=== PATIENT | female | born 1960 | race Caucasian/White ===

== ENCOUNTER 2019-07-14 16:58 | Observation (INO) ==
[2019-07-14] MEDS ORDERED: SODIUM CHLORIDE 0.9% 1000ML 1,000 ML IV SCH (17:30)
[2019-07-14 17:46] LABS: Basophils # (auto) 0.02 K/uL (0-0.2); Basophils % (auto) 0.1 %; Eosinophils # (auto) 0.01 K/uL (0-0.5); Eosinophils % (auto) 0.1 %; Hematocrit (blood only) 42.1 % (37-47); Hemoglobin 14.3 g/dL (12.0-16.0); Immature Granulocytes # (auto) 0.03 K/uL (0.00-0.02); Immature Granulocytes % (auto) 0.2 %; Lymphocytes # (auto) 1.39 K/uL (1.2-3.4); Lymphocytes % (auto) 7.9 %; Mean Corpuscular Hemoglobin 29.7 pg (25-34); Mean Corpuscular Volume 87.3 fL (80-100); Monocytes # (auto) 0.67 K/uL (0.11-0.59); Monocytes % (auto) 3.8 %; Neutrophils # (auto) 15.54 K/uL (1.4-6.5); Neutrophils % (auto) 87.9 %; Platelet Count 236 K/uL (130-400); RDW Standard Deviation 41.8 fL (36.4-46.3); Red Blood Count 4.82 M/uL (4.2-5.4); White Blood Count 17.66 K/uL (4.8-10.8)
[2019-07-14 18:09] LABS: Alanine Aminotransferase 26 U/L (12-78); Albumin Level 4.4 gm/dl (3.4-5.0); BUN Creatinine Ratio 31.4 (10-20); Blood Urea Nitrogen 21 mg/dl (7-18); Calcium 9.5 mg/dl (8.5-10.1); Carbon Dioxide 27 mmol/L (21-32); Chloride 100 mmol/L (98-107); Est GFR (African American) 109.4; Est GFR (Non-African American) 94.4; Glucose 95 mg/dl (70-99); Sodium 135 mmol/L (136-145)
[2019-07-14 18:13] LABS: Appearance Urine Clear (Clear); Bacteria Urine Automated Negative (Negative); Bilirubin Urine Negative (Negative); Blood Urine Trace (Negative); Color Urine Yellow; Epithelial Cell Urine Auto >30 /lpf (0-5); Glucose Urine UA Negative (Negative); Ketones Urine 2+ (Negative); Leukocyte Esterase Urine Negative (Negative); Nitrite Urine Negative (Negative); Protein Urine Trace (Negative); Specific Gravity Urine 1.022 (1.000-1.030); Urobilinogen Urine Negative (Negative)
[2019-07-14 18:17] LABS: Albumin Globulin Ratio 1.3 (0.9-2); Alkaline Phosphatase 42 U/L (45-117); Bilirubin,Total 0.8 mg/dl (0.2-1); Globulin 3.4 gm/dl (2.5-4.0); Thyroid Stimulating Hormone 0.506 uIu/ml (0.300-4.500); Total Protein 7.8 gm/dl (6.4-8.2)
--- NOTE | 2019-07-14 18:21 | XRay Report ---
XR chest 1V portable CLINICAL HISTORY: weakness COMPARISON STUDY: No previous studies for comparison. FINDINGS: Lung volumes are normal. Lungs are clear. There is no pneumothorax or pleural effusion. Mil d cardiomegaly is noted. Mediastinal contours are normal. There is no evidence for pulmonary edema. I ncidental note is made of mild S-shaped scoliosis of the thoracolumbar spine. Several old left rib fr actures are noted. IMPRESSION: No acute cardiopulmonary findings. ACT 112: Negative or not required by law. Electronically signed by: Isrrael Perez M.D. 07/14/2019 6:20 PM
[2019-07-14 18:52] LABS: Potassium 3.9 mmol/L (3.5-5.1)
[2019-07-14 18:57] LABS: Magnesium 1.8 mg/dl (1.8-2.4)
[2019-07-14] MEDS ORDERED: GADOBUTROL 65ML VIAL IV PRN (19:25)
--- NOTE | 2019-07-14 19:54 | Magnetic Resonance Report ---
MRI OF THE BRAIN WITHOUT AND WITH IV CONTRAST CLINICAL HISTORY: new right leg weakness, hx of MS, chronic LLE weak COMPARISON STUDY: No previous studies for comparison. TECHNIQUE: Utilizing a 1.5 Shilpi magnet and dedicated coil, multiplanar, multiecho imaging of the br ain was performed pre and postcontrast administration. IV administration of 4.5 mL of Gadavist contr ast was uneventful. FINDINGS: There are no foci of restricted diffusion to suggest acute infarct. No acute intracranial h emorrhage, midline shift or mass effect is present. Ventricular dilatation is likely due to marked ce ntral atrophy. The corpus callosum is thinned. Numerous white matter T2 hyperintense foci, many of wh ich are periventricular in distribution, suggesting demyelinating disease. There is no enhancement to suggest active demyelination. There is no intracranial mass or pathologic enhancement. Flow-voids in the major intracranial vessels are present. Prosthetic left globe is noted. Calvarial signal is norm al. IMPRESSION: 1. No acute intracranial findings. No evidence for acute infarct. 2. Ventricular dilatation due to marked central atrophy with thinning of the corpus callosum. 3. Numerous white matter T2 hyperintense foci, many of which are periventricular in distribution. Thi s is consistent with the history of multiple sclerosis. No evidence for active demyelination. ACT 112: Negative or not required by law. Electronically signed by: Isrrael Perez M.D. 07/14/2019 7:52 PM
[2019-07-14] MEDS ORDERED: cefTRIAXone SODIUM 1,000 MG/50 ML BAG IV STA (20:53)
[2019-07-14] MEDS ORDERED: POLYETHYLENE (MIRALAX) 17 GM PACK PO PRN (23:07)
[2019-07-14] MEDS ORDERED: ACETAMINOPHEN 325 MG TAB PO PRN (23:07)
[2019-07-14] MEDS ORDERED: CBD OIL PO SCH (23:07)
[2019-07-14] MEDS ORDERED: LORazepam 0.5 MG TAB PO PRN (23:07)
[2019-07-14] MEDS ORDERED: ONDANSETRON INJ 2 MG/ML 2 ML VIAL IV PRN (23:07)
[2019-07-14] MEDS ORDERED: PIPERACILL/TAZOBAC CONSULT ACTIVE PRN (23:07)
[2019-07-14] MEDS: SODIUM CHLORIDE 0.9% 1000ML 1,000 ML IV SCH (23:46)
--- NOTE | 2019-07-14 23:54 | Emergency Department Note ---
Entered by Reina Caballero acting as a scribe for ED Provider Note CHIEF COMPLAINT: Leg pain and weakness HISTORY OF PRESENT ILLNESS: The patient is a 59 year old female with past medical history of multiple sclerosis who presents to the Emergency Room with complaints of constant worsening right leg weakness and pain that started this morning. The patient reports she had double vision when they discovered she had MS. She notes she has right sided vision problems, which the patient states is chronic. The patient states she feels weak overall and has a cough. Pt denies LOC, headache, fevers, chills, diaphoresis, visual changes, neck pain, chest pain, breathing difficulties, nausea, vomiting, abdominal pain, back pain, melena, hematochezia, urinary symptoms, numbness, lymphadenopathy, rash, or other complaints. REVIEW OF SYSTEMS: See HPI for pertinent positives and negatives. A total of ten systems were reviewed and were otherwise negative. PMHx/PSHx: Multiple sclerosis SOCIAL HISTORY: Patient lives at home. PHYSICAL EXAM: GENERAL: Awake, alert, well-appearing, in no distress HENT: Normocephalic, atraumatic. Oropharynx unremarkable. EYES: PERRL. Normal conjunctiva. Sclera non-icteric. NECK: Inspection normal. Non-tender. Supple. No nuchal rigidity. FROM. No masses. RESPIRATORY: Clear to auscultation. No wheezes. No rales. Normal respiratory effort. CARDIAC: Normal rate. Normal rhythm. No murmurs. No rubs. Extremities warm and well perfused. Pulses equal. No JVD. GI: Soft, non-distended. No tenderness to palpation. No rebound or guarding. No masses. RECTAL: Deferred. MUSCULOSKELETAL: Atraumatic. Chest examination reveals no tenderness. The back is symmetrical on inspection without obvious abnormality. There is no CVA tenderness to palpation. No joint edema. LOWER EXTREMITIES: Calves are equal size bilaterally and non-tender. No edema. No discoloration. Strength is 2/5 on the left side which patient states is chronic. Right leg drift but strength is about 3.5/5. NEURO: Normal sensorium. No sensory or motor deficits noted. No upper extremity drift. Normal rapid alternating movements. SKIN: No rash or jaundice noted. EMERGENCY DEPARTMENT COURSE: 1711: The patient was evaluated in room C6, and a complete history and physical examination were performed. 2042: I checked on the patient 2049: I discussed the patients case with Dr. Glover, Neurological Surgery. He said to admit the patient and do an infectious workup. He felt like it should be covered with antibiotics because of her immune system. 2057: I discussed the patient's case with Dr. Roy, [facility] Hospitalist. The patient will be evaluated for further management. MEDICAL DECISION MAKING: Nursing notes reviewed and agree them. Additional history obtained from patient's . The patient's history was concerning for weakness. Differential diagnosis: Etiologies such as MS flare, CVA, TIA, metabolic, infection, hypo/hyperglycemia, electrolyte abnormalities, cardiac sources, intracerebral event, toxicologic, neurologic, as well as others were entertained. Physical examination: As above. ER treatment provided: IV Lock Normal saline hydration IV Rocephin On reassessment the patient felt better. Diagnostics interpretation by me: ECG: Normal The labs revealed a significant leukocytosis on CBC of 17,000. No prior white blood cell counts present in the EMR. Chemistry panel unremarkable. Urinalysis negative. Imaging studies: Chest x-ray negative for acute process. MRI of the head was performed with and without contrast. Old findings of MS present. No obvious active lesions. No ischemia. Consultation: A consultation was placed with the neurologist on-call, Dr. Glover. He recommended antibiotic coverage, infectious work-up, and admission to the hosp ital given the findings. Patient was in agreement. A consultation was placed with the hospitalist. The case was discussed and diagnostics were reviewed. The patient was evaluated in the ER for further treatment. IMPRESSION: Weakness Leukocytosis Multiple Sclerosis PLAN: Admit The scribe's documentation has been prepared under my direction and personally reviewed by me in its entirety. I confirm that the note above accurately reflects all work, treatment, procedures, and medical decision making performed by me. Impression & Plan Weakness, Multiple sclerosis, Leukocytosis Past Med/Surg History Medical History Multiple sclerosis Family History Other No known problems Social History Feels Safe at Home: Yes Results & Data Vital Signs Vital Signs - 24 hr 07/14/19 17:01 07/14/19 17:25 07/14/19 20:00 Temperature 37.3 C Temperature Source Oral Pulse Rate 90 Pulse Rate [Left Finger] 90 Respiratory Rate 18 Respiratory Effort / Characteristics Non-Labored Respiratory Depth Normal Respiratory Pattern Regular Blood Pressure 156/79 H Blood Pressure [Right Arm] 173/88 H Blood Pressure Mean 104 Blood Pressure Mean [Right Arm] 116 Blood Pressure Position Sitting Pulse Oximetry 98 98 98 Oxygen Delivery Method Room Air Room Air Room Air Sepsis Recent Fever Within 48 Hours No Sepsis Action Taken by Nursing No Action Required Home Medications Current Medication List: was personally reviewed by me Laboratory Data Attestation: I reviewed the patient's lab results. Result diagrams: 07/14/19 17:36 07/14/19 18:31 Lab Results 07/14/19 07/14/19 07/14/19 Range/Units 17:36 17:36 18:00 WBC 17.66 H (4.8-10.8) K/uL RBC 4.82 (4.2-5.4) M/uL Hgb 14.3 (12.0-16.0) g/dL Hct 42.1 (37-47) % MCV 87.3 (80-100) fL MCH 29.7 (25-34) pg MCHC 34.0 (32-36) g/dL RDW Std Deviation 41.8 (36.4-46.3) fL RDW Coeff of Odalys 13.0 (11.5-14.5) % Plt Count 236 (130-400) K/uL MPV 10.0 (7.4-10.4) fL Immature Gran % (Auto) 0.2 % Neut % (Auto) 87.9 % Lymph % (Auto) 7.9 % [place] % (Auto) 3.8 % Eos % (Auto) 0.1 % Baso % (Auto) 0.1 % Immature Gran # (Auto) 0.03 H (0.00-0.02) K/uL Neut # (Auto) 15.54 H (1.4-6.5) K/uL Lymph # (Auto) 1.39 (1.2-3.4) K/uL [place] # (Auto) 0.67 H (0.11-0.59) K/uL Eos # (Auto) 0.01 (0-0.5) K/uL Baso # (Auto) 0.02 (0-0.2) K/uL Sodium 135 L (136-145) mmol/L Potassium (3.5-5.1) mmol/L Chloride 100 (98-107) mmol/L Carbon Dioxide 27 (21-32) mmol/L Anion Gap 8.0 (3-11) BUN 21 H (7-18) mg/dl Creatinine 0.68 (0.6-1.2) mg/dl Est Cr Clr Drug Dosing Not Reportable Est GFR ( Amer) 109.4 Est GFR (Non-Af Amer) 94.4 BUN/Creatinine Ratio 31.4 H (10-20) Glucose 95 (70-99) mg/dl Calcium 9.5 (8.5-10.1) mg/dl Magnesium (1.8-2.4) mg/dl Total Bilirubin 0.8 (0.2-1) mg/dl AST (15-37) U/L ALT 26 (12-78) U/L Alkaline Phosphatase 42 L (45-117) U/L Total Protein 7.8 (6.4-8.2) gm/dl Albumin 4.4 (3.4-5.0) gm/dl Globulin 3.4 (2.5-4.0) gm/dl Albumin/Globulin Ratio 1.3 (0.9-2) TSH 0.506 (0.300-4.500) uIu/ml Urine Color Yellow Urine Appearance Clear (Clear) Urine pH 6.0 (4.5-7.5) Ur Specific [place] 1.022 (1.000-1.030) Urine Protein Trace H (Negative) Urine Glucose (UA) Negative (Negative) Urine Ketones 2+ H (Negative) Urine Blood Trace H (Negative) Urine Nitrite Negative (Negative) Urine Bilirubin Negative (Negative) Urine Urobilinogen Negative (Negative) Ur Leukocyte Esterase Negative (Negative) Urine WBC (Auto) 1-5 (0-5) /hpf Urine RBC (Auto) 5-10 H (0-4) /hpf U Hyaline Cast (Auto) 1-5 (0-5) /lpf U Epithel Cells (Auto) >30 H (0-5) /lpf Urine Bacteria (Auto) Negative (Negative) Ur Renal Epithelial Cell Not Reportable 07/14/19 Range/Units 18:31 WBC (4.8-10.8) K/uL RBC (4.2-5.4) M/uL Hgb (12.0-16.0) g/dL Hct (37-47) % MCV (80-100) fL MCH (25-34) pg MCHC (32-36) g/dL RDW Std Deviation (36.4-46.3) fL RDW Coeff of Odalys (11.5-14.5) % Plt Count (130-400) K/uL MPV (7.4-10.4) fL Immature Gran % (Auto) % Neut % (Auto) % Lymph % (Auto) % [place] % (Auto) % Eos % (Auto) % Baso % (Auto) % Immature Gran # (Auto) (0.00-0.02) K/uL Neut # (Auto) (1.4-6.5) K/uL Lymph # (Auto) (1.2-3.4) K/uL [place] # (Auto) (0.11-0.59) K/uL Eos # (Auto) (0-0.5) K/uL Baso # (Auto) (0-0.2) K/uL Sodium (136-145) mmol/L Potassium 3.9 (3.5-5.1) mmol/L Chloride (98-107) mmol/L Carbon Dioxide (21-32) mmol/L Anion Gap (3-11) BUN (7-18) mg/dl Creatinine (0.6-1.2) mg/dl Est Cr Clr Drug Dosing Est GFR ( Amer) Est GFR (Non-Af Amer) BUN/Creatinine Ratio (10-20) Glucose (70-99) mg/dl Calcium (8.5-10.1) mg/dl Magnesium 1.8 (1.8-2.4) mg/dl Total Bilirubin (0.2-1) mg/dl AST 9 L (15-37) U/L ALT (12-78) U/L Alkaline Phosphatase (45-117) U/L Total Protein (6.4-8.2) gm/dl Albumin (3.4-5.0) gm/dl Globulin (2.5-4.0) gm/dl Albumin/Globulin Ratio (0.9-2) TSH (0.300-4.500) uIu/ml Urine Color Urine Appearance (Clear) Urine pH (4.5-7.5) Ur Specific [place] (1.000-1.030) Urine Protein (Negative) Urine Glucose (UA) (Negative) Urine Ketones (Negative) Urine Blood (Negative) Urine Nitrite (Negative) Urine Bilirubin (Negative) Urine Urobilinogen (Negative) Ur Leukocyte Esterase (Negative) Urine WBC (Auto) (0-5) /hpf Urine RBC (Auto) (0-4) /hpf U Hyaline Cast (Auto) (0-5) /lpf U Epithel Cells (Auto) (0-5) /lpf Urine Bacteria (Auto) (Negative) Ur Renal Epithelial Cell Administered Medications Sodium Chloride (Nss 1000ml) 1,000 mls @ 80 mls/hr IV .[id number] PABLO Stop: 08/13/19 23:06 Last Admin: 07/14/19 23:46 Dose: 80 mls/hr Documented by: [id number] Lorazepam (Ativan) 0.5 mg PO HS PRN PRN Reason: Sleep Stop: 08/13/19 23:06 Last Admin: 07/14/19 23:46 Dose: 0.5 mg Documented by: [id number] Miscellaneous (Order Awaiting Action) 1 ea N/A QS [facility] Stop: 08/14/19 00:00 Last Admin: 07/14/19 23:47 Dose: Not Given Documented by: [id number] Miscellaneous (Order Awaiting Action) 1 ea N/A QS [facility] Stop: 08/14/19 00:00 Last Admin: 07/14/19 23:48 Dose: Not Given Documented by: [id number] Discontinued Medications Gadobutrol (Gadavist 65ml) 4.5 ml IV ONCE PRN PRN Reason: Interaction Checking Stop: 07/18/19 19:24 Last Admin: 07/14/19 19:25 Dose: 4.5 ml Documented by: [id number] Sodium Chloride (Nss 1000ml) 1,000 mls @ 125 mls/hr IV .Q8H PABLO Stop: 07/15/19 01:29 Last Infusion: 07/14/19 23:48 Dose: 0 mls/hr Documented by: [id number] Admin: 07/14/19 18:28 Dose: 125 mls/hr Documented by: [id number] Ceftriaxone Sodium (Rocephin) 1,000 mg in 50 mls @ 100 mls/hr IV NOW STA Stop: 07/14/19 21:22 Last Infusion: 07/14/19 21:53 Dose: 0 mls/hr Documented by: [id number] Admin: 07/14/19 21:16 Dose: 100 mls/hr Documented by: [id number] Imaging Data Radiologist's Impression: Radiology results as stated below per my review and the radiologist's interpretation: XR chest 1V portable CLINICAL HISTORY: weakness COMPARISON STUDY: No previous studies for comparison. FINDINGS: Lung volumes are normal. Lungs are clear. There is no pneumothorax or pleural effusion. Mild cardiomegaly is noted. Mediastinal contours are normal. There is no evidence for pulmonary edema. Incidental note is made of mild S- shaped scoliosis of the thoracolumbar spine. Several old left rib fractures are noted. IMPRESSION: No acute cardiopulmonary findings. ACT 112: Negative or not required by law. Electronically signed by: Isrrael Perez M.D. 07/14/2019 6:20 PM MRI OF THE BRAIN WITHOUT AND WITH IV CONTRAST CLINICAL HISTORY: new right leg weakness, hx of MS, chronic LLE weak COMPARISON STUDY: No previous studies for comparison. TECHNIQUE: Utilizing a 1.5 Shilpi magnet and dedicated coil, multiplanar, multiecho imaging of the brain was performed pre and postcontrast administrat ion. IV administration of 4.5 mL of Gadavist contrast was uneventful. FINDINGS: There are no foci of restricted diffusion to suggest acute infarct. No acute intracranial hemorrhage, midline shift or mass effect is present. Ventricular dilatation is likely due to marked central atrophy. The corpus callosum is thinned. Numerous white matter T2 hyperintense foci, many of which are periventricular in distribution, suggesting demyelinating disease. There is no enhancement to suggest active demyelination. There is no intracranial mass or pathologic enhancement. Flow-voids in the major intracranial vessels are present. Prosthetic left globe is noted. Calvarial signal is normal. IMPRESSION: 1. No acute intracranial findings. No evidence for acute infarct. 2. Ventricular dilatation due to marked central atrophy with thinning of the corpus callosum. 3. Numerous white matter T2 hyperintense foci, many of which are periventricular in distribution. This is consistent with the history of multiple sclerosis. No evidence for active demyelination. ACT 112: Negative or not required by law. Electronically signed by: Isrrael Perez M.D. 07/14/2019 7:52 PM Blood Pressure Blood Pressure Findings: Elevated blood pressure Blood Pressure Disposition: further management by hospitalist Discharge Plan Visit Data *Final* Discharge Date/Time: 07/14/19 22:33 Chief Complaint: Leg Injury/Pain Stated Complaint: UNABLE TO USE RIGHT LEG - MS ED Provider: Mark Santos Discharge Problem: Weakness, Multiple sclerosis, Leukocytosis Patient Disposition: Admitted As Inpatient Discharge Instructions Interventions: ED Discharge Assessment Last Done: 07/14/19 22:33 Discharge Problem: Leukocytosis Qualifiers: Leukocytosis type: unspecified Qualified Code(s): D72.829 - Elevated white blood cell count, unspecified The scribe's documentation has been prepared under my direction and personally reviewed by me in its entirety. I confirm that the note above accurately reflects all work, treatment, procedures, and medical decision making performed by me.
[2019-07-15] MEDS ORDERED: PIPERACILLIN/TAZOBACTAM 3.375 GM in DEXTROSE 5% 100 ML IV SCH
--- NOTE | 2019-07-15 00:33 | History and Physical Report ---
DATE OF ADMISSION: 07/14/2019 CHIEF COMPLAINT: Right leg weakness. HISTORY OF PRESENT ILLNESS: This is a 59-year-old female with past medical history significant for multiple sclerosis, depression, anxiety, hypertension. The patient has history of progressive MS likely of primary progressive type with left greater than right hemiparesis. She is on IV Solu-Medrol monthly and Tecfidera orally and she also started taking CBD oil to help with her myalgias and fatigue. Lives with her , walks with a walker. 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 The patient states generally her left leg is weak, but today she noticed her right leg is also getting weak and has difficulty to ambulate. Denies any pain. Has some cough at home, but there is no cough now. Denies any fever, chills. No shortness of breath, no chest pain, no nausea, no vomiting, no abdominal pain. She also has some constipation, No blood in the stools or black stools. No burning micturition, no hematuria. No rash seen. She has some headaches because she did not eat because of the test done in the ER today. Denies any blurred vision. No earache, no runny nose, no sore throat, no difficulty swallowing. Currently, resting comfortable and hemodynamically stable. MRI of the head was done in the ER, which shows no acute findings, ventricular dilatation due to marked central atrophy with thinning of the corpus callosum, lesions consistent for history of multiple sclerosis but no evidence of acute active demyelination. Chest x-ray is unremarkable. UA was unremarkable, but there was leukocytosis of 17,000. ER physician discussed with the neurologist salesperson [employer] and was advised to workup for sepsis and antibiotics and they will evaluate in the morning, but no steroids tonight. ALLERGIES: SULFA ANTIBIOTICS, SANKET INHIBITORS. PAST MEDICAL HISTORY: As mentioned above. PAST SURGICAL HISTORY: No past surgical history on file. MEDICATIONS: The patient is on amlodipine 5 mg p.o. daily, bethanechol chloride 10 mg p.o. t.i.d., calcium citrate 2 tablets p.o. daily, CBD oil 0.5 drops p.o. b.i.d., Celexa 20 mg p.o. at bedtime, Prolia 60 mg subcutaneous q. 6 months, Tecfidera 240 mg p.o. b.i.d., vitamin D2 1250 mg p.o. twice monthly, irbesartan 300 mg p.o. daily, lorazepam 0.5 mg p.o. at bedtime p.r.n., methylprednisolone IV q. 4 weeks, metoprolol succinate 100 mg p.o. daily, Centrum Silver Women 1 tablet p.o. daily. FAMILY HISTORY: No family history on file. SOCIAL HISTORY: Never smoked. No alcohol, no drug use. . REVIEW OF SYMPTOMS: As per HPI. Rest of review of symptoms negative. PHYSICAL EXAMINATION: GENERAL: The patient is thin and frail, not in acute distress. VITAL SIGNS: Temperature 37.3, pulse 90, respiratory rate 18, blood pressure ____, oxygen 98% on room air. HEENT: Left eye is blind and closed. Right eye; reactive to light. No icterus. No pallor. Head atraumatic. NECK: No JVD, no neck masses, no carotid bruits. CARDIOVASCULAR: S1, S2 heard. Regular rate and rhythm. No murmur, no gallop. RESPIRATORY SYSTEM: Normal AP diameter. No accessory muscle use. No wheezing, no crackles. ABDOMEN: Soft, bowel sounds present, nontender. No distention. CENTRAL NERVOUS SYSTEM: Alert, awake and oriented. Power 3/5 in left upper extremities, 5/5 in right upper extremity and 3/5 in right lower extremity. EXTREMITIES: No edema, no erythema seen. LABORATORY DATA: WBC 17.6, hemoglobin 14.3, hematocrit 42.1, platelets 236. Sodium 135, potassium 3.9, chloride 100, bicarb 27, BUN 21, creatinine 0.68, serum glucose 95, calcium 9.5, magnesium 1.8. Total bilirubin 0.8, AST 99, ALT 26, alkaline phosphatase 42. TSH 0.5. Urinalysis; trace protein, +2 ketones. IMAGING: Chest x-ray: No acute cardiopulmonary findings seen. Brain MRI: No acute intracranial findings, no evidence of acute infarct, ventricular dilatation due to marked central atrophy with thinning of the corpus callosum. Numerous white matter, T2 hyperintense foci many of which are periventricular in distribution. This is consistent with a history of multiple sclerosis. No evidence for active demyelination. EKG: Normal sinus rhythm with rate of 87, possible left atrial enlargement and Q-waves in inferior leads. ASSESSMENT AND PLAN: This is a 59-year-old with history of multiple sclerosis, comes with right lower extremity weakness. 1. Right lower extremity weakness, history of multiple sclerosis, generalized weakness left greater than right, ambulatory dysfunction. Presents with Right lower extremity weakness. MRI scan, no acute demyelination. ER physician notified Neurology on-call who advised of infection workup for now.. The patient has leukocytosis, but no other signs of infection. Chest x-ray and urinalysis negative. Rocephin given in ER. We will continue with IV Zosyn. Follow the blood cultures. Gentle IV fluids. Follow the response. Consult Neurology for further evaluation in a.m. 2. History of multiple sclerosis. Continue home medication of Tecfidera. She also gets IV methylprednisolone every 4 weeks. 3. Hypertension. Continue irbesartan and metoprolol succinate. Follow the blood pressure. 4. Depression and anxiety. Continue citalopram and Ativan. 5. DVT prophylaxis. SCDs for now. DISPOSITION: Closely monitor on the medical floor. Level 1 full code. MTDD
[2019-07-15] MEDS: PIPERACILLIN/TAZOBACTAM 3.375 GM in DEXTROSE 5% 100 ML IV SCH ×2 (05:21→13:53)
[2019-07-15 05:38] LABS: Basophils # (auto) 0.01 K/uL (0-0.2); Basophils % (auto) 0.1 %; Hematocrit (blood only) 40.9 % (37-47); Hemoglobin 13.3 g/dL (12.0-16.0); Immature Granulocytes # (auto) 0.03 K/uL (0.00-0.02); Immature Granulocytes % (auto) 0.2 %; Lymphocytes # (auto) 1.03 K/uL (1.2-3.4); Lymphocytes % (auto) 7.5 %; Mean Corpuscular Hemoglobin 28.9 pg (25-34); Mean Corpuscular Hgb Conc 32.5 g/dL (32-36); Mean Corpuscular Volume 88.7 fL (80-100); Mean Platelet Volume 10.1 fL (7.4-10.4); Monocytes # (auto) 1.46 K/uL (0.11-0.59); Monocytes % (auto) 10.7 %; Neutrophils # (auto) 11.15 K/uL (1.4-6.5); Neutrophils % (auto) 81.5 %; Platelet Count 216 K/uL (130-400); RDW Coefficient of Variation 13.1 % (11.5-14.5); Red Blood Count 4.61 M/uL (4.2-5.4); White Blood Count 13.68 K/uL (4.8-10.8)
[2019-07-15 06:15] LABS: BUN Creatinine Ratio 21.5 (10-20); Calcium 8.6 mg/dl (8.5-10.1); Creatinine Clr Calc Pharmacy 64.2 ml/min; Est GFR (African American) 113.4; Est GFR (Non-African American) 97.8; Magnesium 1.9 mg/dl (1.8-2.4); Potassium 3.7 mmol/L (3.5-5.1)
--- NOTE | 2019-07-15 07:12 | Hospitalist Progress Note ---
Date of Service July 15, 2019 Assessment & Plan (1) Weakness: (2) Leukocytosis: (3) Multiple sclerosis: ASSESSMENT AND PLAN: This is a 59-year-old with history of multiple sclerosis, comes with left lower extremity weakness. 1. Left lower extremity weakness, history of multiple sclerosis, generalized weakness left greater than right, ambulatory dysfunction. MRI scan, no acute demyelination. ER physician notified Neurology on-call who advised of infection workup currently. The patient has leukocytosis, but no other signs of infection. Chest x-ray and urinalysis negative. Empirically started on Rocephin. We will continue with Zosyn. Follow the blood cultures. Neurology for further evaluation today 2. Multiple Sclerosis. Continue home medication of Tacfidera. She also to get IV methylprednisolone every 4 weeks. Today she is due. 3. Hypertension. Continue Irbesartan and Metoprolol Succinate. Blood pressure up 4. Depression and anxiety. Continue citalopram and Ativan. Labs checked Obs DC later today ROS-No Headache, No Visual Changes, No Nausea, No Vomiting, No Fever, No Chills, No Neck Pain or Stiffness, No Chest Pain, No Palpitations, No SOB, No OG, No Cough, No Sputum, No Wheezing, No Abdominal Pain, No Diarrhea, No Hematemesis, No Hemoptysis, No Unexpected Weight Loss, No Flank pain, No Melena, No Hematochezia, No Frequency, No Urgency, No Burning, No Hematuria, No Rashes, No Diaphoresis. Appetite is Normal, +Weakness Physical Exam Gen-AAO x 3, NAD, Afebrile, Cachectic Head-NCAT, Absent L eye, R Eye c PERRLA, R Eye EOMI, Anicteric Sclera, No Posterior Pharyngeal Erythema Neck-Supple, No JVD, No Thyromegaly, No Masses, No LAD, No Bruits Lungs-Clear to Auscultation Bilaterally, No Rales, No Rhonchi, No Wheezing, No Crepitus Chest-No S4, +S1, +S2, No S3, No Murmurs, No Rubs, No Gallops, No Ectopy Abdomen-Soft, Bowel Sounds Present, Non Tender, Non Distended, No Hepatomegaly, No Splenomegaly, No Palpable Masses, No Rebound, No Rigidity, No Guarding Musculoskeletal-Full Range of Motion Bilaterally, No CVAT Extremities-No Cyanosis, No Clubbing, No Edema Nuero-Cranial Nerves II-XII grossly intact, Motor WNL, DTRs WNL, Strength WNL, N on Focal Psych-Normal Mood Results & Data ([facility]) Vital Signs (Past 12 Hours) Vital Signs Temp Pulse Resp BP Pulse Ox 07/14/19 23:00 37.1 C 91 H 20 153/83 H 96 07/14/19 22:33 96 07/14/19 22:25 86 165/78 H 96 07/14/19 20:00 90 173/88 H 98 (1) Leukocytosis Leukocytosis type: unspecified Qualified Code(s): D72.829 - Elevated white blood cell count, unspecified
[2019-07-15] MEDS ORDERED: methylPREDNISolone 1,000 MG in SYRINGE 0 ML IV ONE (08:12)
[2019-07-15] MEDS ORDERED: methylPREDNISolone 250 MG in SYRINGE 0 ML IV ONE (08:12)
[2019-07-15] MEDS ORDERED: SODIUM CHLORIDE 0.9% IV SCH (08:45)
[2019-07-15] MEDS ORDERED: METHYLPREDNISOLONE IV SCH (08:45)
[2019-07-15] MEDS ORDERED: IRBESARTAN 150 MG TAB PO SCH (09:00)
[2019-07-15] MEDS ORDERED: METOPROLOL SUCC 50MG EXT REL TAB PO SCH (09:00)
[2019-07-15] MEDS ORDERED: AMLODIPINE BESYLATE 5 MG TAB PO SCH (09:00)
[2019-07-15] MEDS ORDERED: CEROVITE ADV FORMULA TAB PO SCH (09:00)
--- NOTE | 2019-07-15 09:30 | Electrocardiogram Report ---
Test Reason : Blood Pressure : / mmHG Vent. Rate : 087 BPM Atrial Rate : 087 BPM P-R Int : 150 ms QRS Dur : 076 ms QT Int : 368 ms P-R-T Axes : 066 002 057 degrees QTc Int : 442 ms Normal sinus rhythm Possible Left atrial enlargement Inferior infarct , age undetermined Abnormal ECG No previous ECGs available Confirmed by Tan Nino ([id number]) on 07/15/2019 9:30:34 AM Referred By: REFERRED SELF Confirmed By:Tan Nino
[2019-07-15] MEDS: SODIUM CHLORIDE 0.9% 1000ML 1,000 ML IV SCH (11:22)
--- NOTE | 2019-07-15 13:56 | Neurology Consultation ---
Date of Consultation July 15, 2019 Assessment & Plan (1) Multiple sclerosis: 1. MRI - no new lesions, no stroke 2. CXR- no active disease 3. WBC - elevated with no source of infection 4. methylprednisolone 1 g given this am 5. IV antibiotic given Zosyn and one dose of Rocephin 6. continue Tecfidera 240 mg BID for now 7. may refer to MS specialist as outpatient -Dr Mahmood 8. PT/OT for any discharge needs- continue ambulation with walker and mofit brace for drop foot 9. MRI c spine ordered for possible lesion vs staging of disease 10. ok to discharge once MRI c spine is completed and medically stable (2) Leukocytosis: as above (3) Weakness: as above Supervising Physician Co-Signing Physician Notes I have seen and discussed above patient with Dr Mark Glover, neurology I know Kathi from multiple outpatient visits over the past 5 years. She has secondary progressive multiple sclerosis with severe baseline gait disturbance left more than right hemiparesis, and over the years has been on multiple disease modifying treatments including interferons, Copaxone, and now combination of oral Tecfidera and monthly IV Solu-Medrol which seems to be holding her at least at her current level of function which is marginal and is walker dependent gait and requiring a number of assistive devices and assistance for some of her activities of daily living. In this setting she had a recent upper respiratory tract infection without fever for which she took some [id number] decongestants and then after 2 doses developed sudden worsening of her right lower extremity weakness which was critical as this is the only extremity that is the major source of her gait and became generally weak as well to the point that she needed assistance to sit up when she came to the emergency room.. She was afebrile and laboratory studies etc. were normal with the exception of a white count of 17,000 with a left shift I did discuss the case with the emergency room physician recommended that she be admitted broad-spectrum antibiotics given, cultures reviewed and that she get her monthly IV Solu-Medrol dose today which was due anyway On this combination she is now back to her baseline she is able to ambulate with a walker her white count has fallen a bit and cultures thus far are negative as is the chest x-ray and is no obvious source of infection and she has no abdominal complaints has had no change in bowel or bladder function no nausea no vomiting so the index of suspicion of a diverticulitis or cholecystitis/cholangitis is low and the internal medicine group feels should she could be discharged MRI of her brain is unchanged shows no active lesions in an impressive amount of old demyelinating foci including some "black holes" on T1 imaging We have not imaged her cervical spine for at least 5 years and I am going to get this done while she is in the hospital to serve as a new baseline and to see if she might of had some flareup of disease in the cervical area although even if new plaque were present I do not think I would change the treatment other than perhaps considering a course of oral prednisone over the next few days and this can be decided on an outpatient basis She is quite anxious to go home I do not think we would be able to keep her on this we had very good reasons and we do not so I am going to recommend discharge once the MRI is done if this is indeed approved by the internal medicine staff and I will see her in August for a scheduled appointment We will continue the current drug regimen and I am going to contact our multiple sclerosis team to see if they would advise continuation, perhaps a change to Ocrevus which would be my choice (she seems content however with her current management plan and it seems to be stabilizing) whether they might recommend pulling back at all treatment which I think would be a hard thing for the family to accept but might actually be appropriate based on her age and may be appropriate based on imaging studies if they show no new areas of activation Mark Glover MD History of Present Illness Reason for Consultation: right leg weakness, hx of MS Requesting Physician: Vitaly Casiano DO Attending Physician: Vitaly Casiano DO History of Present Illness Kathi is a 59 year old female with PMH MS-primary progressive, depression, anxiety, HTN, 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 She is on IV Solu-Medrol monthly and Tecfidera orally and she also started taking CBD oil to help with her myalgias and fatigue. At baseline she walks with a walker and has a left sided chronic weakness and left foot drop and mofit brace with walking. She had a cold with cough which is resolving. She started having a right side LE weakness which started to resolve last night. She had a steroid 1 g this am IV. She had some headaches because she did not eat because of the test done in the ER today. She has an elevation of WBC but no infection identified. denies CP, SOB, abdominal pain, N, V, swallowing issues, new vision issues, new bowel or bladder issues, falls. Allergies Allergy/AdvReac Type Severity Reaction Status Date / Time Sulfa (Sulfonamide Allergy Intermediate EYES Verified 07/14/19 17:27 Antibiotics) BECAME REDDENED & SWELLED SHUT SANKET Inhibitors AdvReac Intermediate Cough Verified 07/14/19 17:27 Home Medications Home Medications Medication Instructions Recorded Confirmed Type Cbd Oil 0.5 drp PO BID 07/14/19 07/14/19 History amlodipine 5 mg PO DAILY 07/14/19 07/14/19 History bethanechol chloride 10 mg PO TID 07/14/19 07/14/19 History calcium citrate-vitamin D3 2 tab PO QDD 07/14/19 07/14/19 History [Citracal Regular] citalopram [Celexa] 20 mg PO HS 07/14/19 07/14/19 History denosumab [Prolia] 60 mg SUBCUT .[id number] 07/14/19 07/14/19 History dimethyl fumarate [Tecfidera] 240 mg PO BID 07/14/19 07/14/19 History ergocalciferol (vitamin D2) 1,250 mcg PO .TWICE MONTHLY 07/14/19 07/14/19 History [Vitamin D2] irbesartan 300 mg PO DAILY 07/14/19 07/14/19 History lorazepam 0.5 mg PO HS PRN 07/14/19 07/14/19 History methylprednisolone sod suc(PF) 0 g IV Q4WK 07/14/19 07/14/19 History [Solu-Medrol (PF)] metoprolol succinate 100 mg PO DAILY 07/14/19 07/14/19 History tbxatyrk-ycj-aeng-FA-lutein 1 tab PO DAILY 07/14/19 07/14/19 History [Centrum Silver Women] Patient History Medical History Multiple sclerosis Family History Other No known problems Social History Preferred Language: Iranian Communication Ability: Effective Speech And Language Specialist Required: No Beliefs That Will Affect Care: None Current Living Situation: Spouse Other Information That Helps Us Care for You: No Feels Safe at Home: Yes Safety Concerns: Feels Safe At This Time Hx Alcohol Use: No Hx Substance Use: No Physical Exam Physical Exam: Physical Exam: Constitutional: appearance thin frail Ears, Nose, Mouth and Throat: mucous membranes moist, no injection and skin normal, eyes normal Cardiovascular: normal S-1 and S-2 and regular rate and rhythm Respiratory: clear to auscultation (CTA) and no rales, ronchi or wheeze Musculoskeletal: no peripheral edema and good distal pulses Skin: no stigmata of neurocutaneous disease noted and normal and intact Eyes: right-extraocular muscles intact (EOMI) and pupils equal, round and reactive to light (PERRL), left eye clouded, non reactive to light NEUROLOGIC EXAMINATION: Mental status: Alert and interactive Oriented to full date and location Oriented to person Speech fluent with no evidence of aphasia Cranial Nerves smile eye brow raise symmetric Reflexes: Deep tendon reflexes were symmetrical and brisk throughout. non sustained clonus. Sensory: no sensory deficits, vibration, cool light touch Coordination: Romberg absent Gait/Stance: Posture sitting in chair bed side Strength: biceps triceps hand produce department supervisor 4+/5, hip flex right 5/5 left 3/5, plantar/patellar flex ext right 5/5, left 3/5 Results & Data Vital Signs (Past 12 Hours) Vital Signs Temp Pulse Resp BP Pulse Ox 07/15/19 07:31 36.9 C 94 H 20 155/73 H 98 Laboratory Results Abnormal lab results 07/14/19 07/14/19 07/14/19 Range/Units 17:36 17:36 18:00 WBC 17.66 H (4.8-10.8) K/uL Immature Gran # (Auto) 0.03 H (0.00-0.02) K/uL Neut # (Auto) 15.54 H (1.4-6.5) K/uL Lymph # (Auto) (1.2-3.4) K/uL Marshall # (Auto) 0.67 H (0.11-0.59) K/uL Sodium 135 L (136-145) mmol/L BUN 21 H (7-18) mg/dl BUN/Creatinine Ratio 31.4 H (10-20) Glucose (70-99) mg/dl AST (15-37) U/L Alkaline Phosphatase 42 L (45-117) U/L Urine Protein Trace H (Negative) Urine Ketones 2+ H (Negative) Urine Blood Trace H (Negative) Urine RBC (Auto) 5-10 H (0-4) /hpf U Epithel Cells (Auto) >30 H (0-5) /lpf 07/14/19 07/15/19 07/15/19 Range/Units 18:31 05:14 05:14 WBC 13.68 H (4.8-10.8) K/uL Immature Gran # (Auto) 0.03 H (0.00-0.02) K/uL Neut # (Auto) 11.15 H (1.4-6.5) K/uL Lymph # (Auto) 1.03 L (1.2-3.4) K/uL Marshall # (Auto) 1.46 H (0.11-0.59) K/uL Sodium (136-145) mmol/L BUN (7-18) mg/dl BUN/Creatinine Ratio 21.5 H (10-20) Glucose 112 H (70-99) mg/dl AST 9 L (15-37) U/L Alkaline Phosphatase (45-117) U/L Urine Protein (Negative) Urine Ketones (Negative) Urine Blood (Negative) Urine RBC (Auto) (0-4) /hpf U Epithel Cells (Auto) (0-5) /lpf Diagnostic Findings CXR-No acute cardiopulmonary findings. MRI brain-. No acute intracranial findings. No evidence for acute infarct. Lei tricular dilatation due to marked central atrophy with thinning of the corpus callosum. Numerous white matter T2 hyperintense foci, many of which are periventricular in distribution. This is consistent with the history of multiple sclerosis. No evidence for active demyelination. (1) Leukocytosis Leukocytosis type: unspecified Qualified Code(s): D72.829 - Elevated white blood cell count, unspecified
[2019-07-15] MEDS ORDERED: GADOBUTROL 65ML VIAL IV PRN (16:20)
[2019-07-15] MEDS ORDERED: CALCIUM 600MG + VIT D 400 IU TAB PO SCH (16:30)
--- NOTE | 2019-07-15 16:51 | Magnetic Resonance Report ---
MRI OF THE CERVICAL SPINE WITH AND WITHOUT CONTRAST CLINICAL HISTORY: History of multiple sclerosis. Sudden onset right-sided weakness. COMPARISON: None available at time of interpretation. TECHNIQUE: Utilizing a 1.5 Shilpi magnet and dedicated coil, multiplanar, multiecho imaging of the ce rvical spine was performed before and after intravenous administration of 4 of Gadavist. FINDINGS: Alignment of the cervical spine is anatomic. Vertebral body heights are maintained. A 9 mm T1 and T2 hyperintense lesion within the T3 vertebral body represents a hemangioma. There is no suspicious sammie ow replacement. There is no cervical spine fracture. No intracanalicular mass or fluid collection is noted. Paravertebral soft tissues are unremarkable. Mild to moderate multilevel degenerative changes within the cervical spine are noted. There are multiple foci of increased T2 signal within the cervic al cord as well as suspected foci within the thoracic cord. These are suboptimally assessed on this e xam given motion artifact. Specifically, note is made of a 1.9 cm T2 hyperintense focus at the C1-C2 level within the left aspect of the cord. A T2 hyperintense central focus at the C3 level is noted. A small T2 hyperintense focus within the anterior aspect of the cord at the C5 level is noted. No enha ncement is identified suggest active demyelination. C2-C3: Central canal and neural foramen are patent. C3-C4: Central canal and neural foramen are patent. C4-C5: Posterior disc osteophyte complex mildly effaces the ventral thecal sac. Right neural foramen is patent. There is mild to moderate left neural foraminal stenosis, suboptimally assessed on this e xam. C5-C6: There is disc space narrowing with posterior disc osteophyte complex that effaces the ventral thecal sac. There is mild central canal narrowing. Right neural foramen is patent. Moderate narrowin g of the left neural foramen is noted. C6-C7: There is disc space narrowing with mild posterior discussed by complex. There is mild central canal narrowing. There is moderate left neural foraminal stenosis. C7-T1: The central canal and neural foramen are patent. IMPRESSION: 1. Multiple T2 hyperintense foci within the cervical cord consistent with the history of multiple scl erosis. No enhancement to suggest active demyelination. 2. Mild to moderate multilevel degenerative changes within the cervical spine. No severe central randolph l stenosis. Mild central canal narrowing at C4-C5, C5-C6 and C6-C7. Moderate multilevel neural forami nal narrowing. ACT 112: Negative or not required by law. Electronically signed by: Isrrael Perez M.D. 07/15/2019 4:50 PM
--- NOTE | 2019-07-15 16:56 | Discharge Summary ---
Date of Service July 15, 2019 Admission HPI Per Admitting Provider 59-year-old female with past medical history significant for multiple sclerosis, depression, anxiety, hypertension. The patient has history of progressive MS likely of primary progressive type with left greater than right hemiparesis. She is on IV Solu-Medrol monthly and Tecfidera orally and she also started taking CBD oil to help with her myalgias and fatigue. Lives with her , walks with a walker. 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 The patient states generally her left leg is weak, but today she noticed her right leg is also getting weak and has difficulty to ambulate. Denies any pain. Has some cough at home, but there is no cough now. Denies any fever, chills. No shortness of breath, no chest pain, no nausea, no vomiting, no abdominal pain. She also has some constipation, No blood in the stools or black stools. No burning micturition, no hematuria. No rash seen. She has some headaches because she did not eat because of the test done in the ER today. Denies any blurred vision. No earache, no runny nose, no sore throat, no difficulty swallowing. Currently, resting comfortable and hemodynamically stable. MRI of the head was done in the ER, which shows no acute findings, ventricular dilatation due to marked central atrophy with thinning of the corpus callosum, lesions consistent for history of multiple sclerosis but no evidence of acute active demyelination. Chest x-ray is unremarkable. UA was unremarkable, but there was leukocytosis of 17,000. ER physician discussed with the neurologist front line supervisor and was advised to workup for sepsis and antibiotics and they will evaluate in the morning, but no steroids tonight. Admission Exam Per Admitting Provider GENERAL: The patient is thin and frail, not in acute distress. VITAL SIGNS: Temperature 37.3, pulse 90, respiratory rate 18, blood pressure ____, oxygen 98% on room air. HEENT: Left eye is blind and closed. Right eye; reactive to light. No icterus. No pallor. Head atraumatic. NECK: No JVD, no neck masses, no carotid bruits. CARDIOVASCULAR: S1, S2 heard. Regular rate and rhythm. No murmur, no gallop. RESPIRATORY SYSTEM: Normal AP diameter. No accessory muscle use. No wheezing, no crackles. ABDOMEN: Soft, bowel sounds present, nontender. No distention. CENTRAL NERVOUS SYSTEM: Alert, awake and oriented. Power 3/5 in left upper extremities, 5/5 in right upper extremity and 3/5 in right lower extremity. EXTREMITIES: No edema, no erythema seen. Principal Diagnosis (1) Weakness: (2) Leukocytosis: (3) Multiple sclerosis: Discharge Exam Gen-AAO x 3, NAD, Afebrile, Cachectic Head-NCAT, Absent L eye, R Eye c PERRLA, R Eye EOMI, Anicteric Sclera, No Posterior Pharyngeal Erythema Neck-Supple, No JVD, No Thyromegaly, No Masses, No LAD, No Bruits Lungs-Clear to Auscultation Bilaterally, No Rales, No Rhonchi, No Wheezing, No Crepitus Chest-No S4, +S1, +S2, No S3, No Murmurs, No Rubs, No Gallops, No Ectopy Abdomen-Soft, Bowel Sounds Present, Non Tender, Non Distended, No Hepatomegaly, No Splenomegaly, No Palpable Masses, No Rebound, No Rigidity, No Guarding Musculoskeletal-Full Range of Motion Bilaterally, No CVAT Extremities-No Cyanosis, No Clubbing, No Edema Nuero-Cranial Nerves II-XII grossly intact, Motor WNL, DTRs WNL, Strength WNL, Non Focal Psych-Normal Mood Discharge Data Allergies Allergy/AdvReac Type Severity Reaction Status Date / Time Sulfa (Sulfonamide Allergy Intermediate EYES Verified 07/14/19 17:27 Antibiotics) BECAME REDDENED & SWELLED SHUT SANKET Inhibitors AdvReac Intermediate Cough Verified 07/14/19 17:27 Consultations 07/14/19 21:47 ED Decision to Admit Stat 07/14/19 23:07 Consult Case Management - Discharge Planning Routine 07/15/19 08:00 Consult Neurology Routine Ordered Studies 07/14/19 17:23 MR brain wo/w con Stat 1. No acute intracranial findings. No evidence for acute infarct. 2. Ventricular dilatation due to marked central atrophy with thinning of the corpus callosum. 3. Numerous white matter T2 hyperintense foci, many of which are periventricular in distribution. This is consistent with the history of multiple sclerosis. No evidence for active demyelination. 07/15/19 13:59 MR cervical spine wo/w con Urgent 1. Multiple T2 hyperintense foci within the cervical cord consistent with the history of multiple sclerosis. No enhancement to suggest active demyelination. 2. Mild to moderate multilevel degenerative changes within the cervical spine. No severe central canal stenosis. Mild central canal narrowing at C4-C5, C5-C6 and C6-C7. Moderate multilevel neural foraminal narrowing. Current Diagnoses Elevated white blood cell count, unspecified (07/14/19) Multiple sclerosis (07/14/19) Weakness (07/14/19) Allergies Sulfa (Sulfonamide Antibiotics) Allergy (Intermediate, Verified 07/14/19 17:27) EYES BECAME REDDENED & SWELLED SHUT SANKET Inhibitors Adverse Reaction (Intermediate, Verified 07/14/19 17:27) Cough Height/Weight/Isolation Height 5 ft 5 in Weight 42 kg Chemistry 07/14/19 07/14/19 07/15/19 17:36 18:31 05:14 Sodium 135 L 137 Potassium 3.9 3.7 Chloride 100 103 Carbon Dioxide 27 28 Anion Gap 8.0 6.0 BUN 21 H 13 Creatinine 0.68 0.61 Glucose 95 112 H Urinalysis 07/14/19 18:00 Urine Color Yellow Urine Appearance Clear Urine pH 6.0 Ur Specific [place] 1.022 Urine Protein Trace H Urine Glucose (UA) Negative Urine Ketones 2+ H Urine Blood Trace H Urine Nitrite Negative Urine Bilirubin Negative Microbiology 07/14/19 21:11 Blood Aerobic Blood Culture - Pending 07/14/19 21:11 Blood Anaerobic Blood Culture - Pending 07/14/19 21:05 Blood Aerobic Blood Culture - Pending 07/14/19 21:05 Blood Anaerobic Blood Culture - Pending Hospital Course (1) Weakness: (2) Leukocytosis: (3) Multiple sclerosis: ASSESSMENT AND PLAN: This is a 59-year-old with history of multiple sclerosis, comes with left lower extremity weakness. 1. Left lower extremity weakness, history of multiple sclerosis, generalized weakness left greater than right, ambulatory dysfunction. MRI scan, no acute demyelination. ER physician notified Neurology on-call who advised of infection workup currently. The patient has leukocytosis, but no other signs of infection. Chest x-ray and urinalysis negative. Empirically started on Rocephin. We will continued with Zosyn. Neurology saw her and said she can go today and f/u c Dr Mahmood 2. Multiple Sclerosis. Got her 1000 mg of IV methylprednisolone today 3. Hypertension. Continue Irbesartan and Metoprolol Succinate. Blood pressure was up 4. Depression and anxiety. Continue citalopram and Ativan. Labs checked DC today Total Time Total Time Spent Total Time Spent (In Minutes): 40 mins Total Time Includes: Examination of the Patient, Discharge Planning, Medication Reconciliation and Communication With Other Providers Discharge Plan Discharge Items Patient Disposition: Home - Self-Care Reason For Visit: RIGHT LEG WEAKNESS Discharge Diagnosis: Weakness Condition on Discharge: Good Health Concerns: Further Weakness Activity: Resume your previous activity Lifting: None Bathing: No limitations Sexual Activity: When tolerated Exercise/Sports: None Driving/Machine Use: No limitations Weightbearing: Full weightbearing Non-emergency contact: Primary Care Provider and Neurologist Call non-emergency contact if: you have any medication questions Follow-up/Referrals: Nadia Wood MD [Primary Care Provider] - 07/19/19 9:20 am Diet: Regular Addtl Attending Provider Instructions: Follow up with Dr Mahmood- Opening Pending Studies at Discharge: No Stand-Alone Forms: My [facility] [place] [employer], Smoking Cessation Medications and DC Order Prescriptions: Continued bethanechol chloride 10 mg Tablet 10 mg PO TID RF: 0 metoprolol succinate 100 mg Tablet Extended Release 24 Hr 100 mg PO DAILY RF: 0 amlodipine 5 mg Tablet 5 mg PO DAILY RF: 0 citalopram [Celexa] 20 mg Tablet 20 mg PO HS RF: 0 lorazepam 0.5 mg Tablet 0.5 mg PO HS PRN (Reason: Sleep) RF: 0 ergocalciferol (vitamin D2) [Vitamin D2] 1,250 mcg (50,000 unit) Capsule 1,250 mcg PO .TWICE MONTHLY RF: 0 irbesartan 300 mg Tablet 300 mg PO DAILY RF: 0 calcium citrate-vitamin D3 [Citracal Regular] 250 mg calcium- 200 unit Tablet 2 tab PO QDD RF: 0 Solu-Medrol (PF) 1,000 mg/8 mL Recon Soln 0 g IV Q4WK RF: 0 Prolia 60 mg/mL Syringe 60 mg SUBCUT .[id number] RF: 0 Centrum Silver Women 8 mg iron-400 mcg-300 mcg Tablet 1 tab PO DAILY RF: 0 Tecfidera 240 mg Capsule,Delayed Release(Dr/Ec) 240 mg PO BID RF: 0 Cbd Oil 0.5 drp PO BID RF: 0 Discharge Orders: Discharge Order (Routine); Ordered 07/15/19 Ordered By: Vitaly Fields/Other Patient Handouts: Discharge Instructions for Multiple Sclerosis Admission Data Admit Date/Time: 07/14/19 21:49 Attending Provider: Vitaly Casiano Admit Provider: Reji Roy Primary Care Provider: Nadia Wood Other Providers: Reji Roy ; Mark Glover
[2019-07-15] MEDS ORDERED: CITALOPRAM 20 MG TAB PO SCH (21:00)
== END 2019-07-15 18:31 | disposition home or self-care (01) ==
LOC: ED 16:58 → 2N 16:58 → SUATTDRO 21:49 → 2N 22:33